=== PATIENT | male | born 1985 | race American Indian/Alaskan Native ===

== ENCOUNTER 2019-09-19 14:45 | Emergency (ER) | payer OTHER ==
[~2019-09-19] VITALS: Ht 165.1 cm; Wt 88.5 kg
[2019-09-19 15:00] VITALS: BP 133/80
[2019-09-19] MEDS ORDERED: methylPREDNISolone SOD SUCC 125 MG/2 ML VL IV ONE (16:15)
== END 2019-09-19 16:30 | disposition home or self-care (01) ==
LOC: EDBD 14:45 → ER 14:54
DX: T63.441A Toxic effect of venom of bees, accidental (unintentional), initial encounter (principal); T78.40XA Allergy, unspecified, initial encounter; R06.02 Shortness of breath; R07.0 Pain in throat; X58.XXXA Exposure to other specified factors, initial encounter; Y92.9 Unspecified place or not applicable
CPT/HCPCS: 96374; 99283; J2930